=== PATIENT | female | born 1960 | race Caucasian/White ===

== ENCOUNTER 2018-08-15 09:00 | Emergency (ER) | payer BC ==
[~2018-08-15] VITALS: Ht 157.5 cm; Wt 54.5 kg
[2018-08-15 09:21] VITALS: BP 107/66
== END 2018-08-15 10:09 | disposition home or self-care (01) ==
LOC: ER 09:00
DX: S82.64XA Nondisplaced fracture of lateral malleolus of right fibula, initial encounter for closed fracture (principal); Z88.0 Allergy status to penicillin; Z88.8 Allergy status to other drugs, medicaments and biological substances; X50.1XXA Overexertion from prolonged static or awkward postures, initial encounter; Y93.01 Activity, walking, marching and hiking; Y92.89 Other specified places as the place of occurrence of the external cause; Y99.8 Other external cause status
CPT/HCPCS: 73610; 99284